=== PATIENT | male | born 1990 | race Caucasian/White ===

== ENCOUNTER 2023-04-06 04:28 | Emergency (ER) | payer SELFPAY ==
[~2023-04-06] VITALS: Ht 177.8 cm; Wt 74.8 kg
[2023-04-06 04:28] VITALS: BP 136/84; PULSE 97; RESP 16; TEMP 97.2; O2SAT 98
[2023-04-06 05:00] VITALS: BP 136/84; PULSE 97; RESP 16; TEMP 97.2; O2SAT 98
== END 2023-04-06 05:00 ==
LOC: MED 04:28
DX: Z02.89 Encounter for other administrative examinations (principal); V89.2XXA Person injured in unspecified motor-vehicle accident, traffic, initial encounter; Y93.89 Activity, other specified; Y92.410 Unspecified street and highway as the place of occurrence of the external cause; Y99.8 Other external cause status
CPT/HCPCS: 99283